=== PATIENT | male | born 1960 | race African-American/Black ===

== ENCOUNTER 2020-12-15 19:00 | Inpatient (IN) ==
[2020-12-15] MEDS ORDERED: SODIUM CHLORIDE 0.9% 1,000 ML IV STA (22:32)
[2020-12-16] MEDS ORDERED: AZITHROMYCIN INJ 500 MG in SODIUM CHLORIDE 0.9% 250 ML IV ONE (01:19)
[2020-12-16] MEDS ORDERED: MELATONIN 3 MG TABLET PO PRN (01:19)
[2020-12-16] MEDS ORDERED: GLUCAGON 1 MG VIAL IM PRN (01:31)
[2020-12-16] MEDS ORDERED: DEXTROSE 50% 25 GM/50 ML VIAL IV PRN (01:31)
[2020-12-16] MEDS ORDERED: ACETAMINOPHEN 325 MG TABLET PO PRN (01:31)
[2020-12-16] MEDS ORDERED: ONDANSETRON 4 MG/2 ML VIAL IV PRN (01:31)
[2020-12-16] MEDS ORDERED: DILTIAZEM 50 MG/10 ML VIAL IV STA ×2 (02:17→05:39)
[2020-12-16] MEDS ORDERED: FUROSEMIDE 40 MG/4 ML VIAL IV ONE (02:17)
[2020-12-16] MEDS ORDERED: DILTIAZEM 25 MG/5 ML VIAL IV ONE (02:20)
[2020-12-16] MEDS ORDERED: METOPROLOL TARTRATE 5 MG/5 ML VIAL IV ONE (02:49)
[2020-12-16] MEDS ORDERED: DILTIAZEM 100 MG VIAL.ADD IV ONE (03:06)
[2020-12-16] MEDS: DILTIAZEM INJ 100 MG in SODIUM CHLORIDE 0.9% 100 ML IV SCH ×3 (03:10→10:01)
[2020-12-16 03:12] LABS: ABG Base Excess -19.6 MMOL/L (-2.5-2.5); ABG HCO3 10.4 MMOL/L (20-26); ABG Oxygen Saturation 83.7 % (95-100); ABG PO2 62.6 MM HG (80-95); ABG TCO2 6.6 MMOL/L (23-27)
[2020-12-16 03:14] LABS: ABG PCO2 18.6 MM HG (35-48); ABG PH 7.206 (7.35-7.45)
[2020-12-16] MEDS ORDERED: SODIUM BICARBONATE 50 MEQ/50 ML SYRINGE IV ONE (03:18)
[2020-12-16] MEDS ORDERED: ETOMIDATE 20 MG/10 ML VIAL IV ONE ×2 (03:23→05:24)
[2020-12-16] MEDS ORDERED: VECURONIUM 10 MG VIAL IV ONE (03:24)
[2020-12-16] MEDS ORDERED: propofoL 200 MG/20 ML VIAL IV ONE (04:04)
[2020-12-16 04:35] LABS: Basophils % 0.1 % (0.0-0.8); Hematocrit 43.4 VOL% (42.0-52.0); Hemoglobin 13.9 GM/DL (14.0-18.0); Immature Granulocytes % 0.6 %; Immature Granulocytes Absolute 0.07 #; Lymphocytes # 1.1 10*3/uL (1.4-4.0); Lymphocytes % 8.4 % (21.2-54.2); Mean Corpuscular Volume 96.4 FL (87-102); Mean Platelet Volume 10.9 FL (9.6-12.0); Monocytes % 3.1 % (1.7-12.7); Neutrophils % 87.8 % (38.7-73.9); Platelet Count 138 T/CUMM (130-400); Red Cell Distribution Width 15.1 % (9.3-17.3); White Blood Count 12.7 T/CUMM (4-12)
[2020-12-16] MEDS: MIDAZOLAM 100 MG in SODIUM CHLORIDE 0.9% 80 ML IV PRN ×2 (04:45→12:30)
[2020-12-16 04:50] LABS: INR 1.1; PT Patient Result 12.4 SECS (10.5-12.0)
[2020-12-16 04:52] LABS: Albumin 2.2 G/DL (3.4-5.0); Bilirubin,Total 0.9 MG/DL (0.20-1.00); Calcium 8.5 MG/DL (8.5-10.1); Osmolality,Calculated 299.4 MOS/KG (273-304); Potassium 5.1 MMOL/L (3.5-5.1)
[2020-12-16 04:53] LABS: Lymphocytes 4 % (20-55); Platelet Estimate Normal; Segmented Neutrophils 94 % (50-85); Total Cells Counted 100
[2020-12-16] MEDS ORDERED: MAGNESIUM SULF RIDER 2 GM/50 ML PREMIX IV PRN (05:23)
[2020-12-16] MEDS ORDERED: POTASSIUM CHLORIDE 20 MEQ TABLET PO PRN (05:23)
[2020-12-16] MEDS ORDERED: MAGNESIUM SULF RIDER 4 GM/100 ML PREMIX IV PRN (05:23)
[2020-12-16] MEDS ORDERED: FUROSEMIDE 40 MG/4 ML VIAL IV STA (05:37)
[2020-12-16] MEDS ORDERED: METOPROLOL TARTRATE 5 MG/5 ML VIAL IV STA (05:37)
[2020-12-16] MEDS ORDERED: SODIUM BICARBONATE 50 MEQ/50 ML VIAL IV STA (05:38)
[2020-12-16] MEDS ORDERED: ETOMIDATE 20 MG/10 ML VIAL IV STA ×2 (05:39→05:40)
[2020-12-16] MEDS ORDERED: VECURONIUM 10 MG VIAL IV STA (05:39)
[2020-12-16] MEDS ORDERED: propofoL 200 MG/20 ML VIAL IV STA (05:40)
[2020-12-16 05:51] LABS: ABG Base Excess -10.6 MMOL/L (-2.5-2.5); ABG HCO3 16.2 MMOL/L (20-26); ABG PCO2 38.1 MM HG (35-48); ABG PH 7.243 (7.35-7.45); ABG TCO2 14.5 MMOL/L (23-27)
[2020-12-16] MEDS ORDERED: ACETAMINOPHEN 650 MG SUPP RECTAL STA (06:08)
[2020-12-16] MEDS ORDERED: INSULIN REGULAR 100 UNIT/ML SUBCUT SCH (07:30)
[2020-12-16] MEDS: DEXAMETHASONE 4 MG/1 ML VIAL IV SCH (08:53)
[2020-12-16] MEDS: carvediloL 6.25 MG TABLET PO SCH ×2 (08:53→20:39)
[2020-12-16] MEDS: FAMOTIDINE 20 MG/2 ML VIAL IV SCH ×2 (08:53→19:40)
[2020-12-16] MEDS: ZINC GLUCONATE 50 MG TABLET PO SCH (08:54)
[2020-12-16] MEDS: RIVAROXABAN 15 MG TABLET PO SCH (08:54)
[2020-12-16] MEDS: GABAPENTIN 400 MG CAPSULE PO SCH ×3 (08:54→20:39)
[2020-12-16] MEDS: FERROUS SULFATE 325 MG TABLET PO SCH (08:54)
[2020-12-16] MEDS: OMEGA 3 ACID ETHYL ESTERS 1 GM CAPSULE PO SCH (08:54)
[2020-12-16] MEDS: allopurinoL 100 MG TABLET PO SCH (08:54)
[2020-12-16] MEDS: CHOLECALCIFEROL 5,000 UNIT TABLET PO SCH ×2 (08:54→20:39)
[2020-12-16] MEDS: CLOPIDOGREL 75 MG TABLET PO SCH (08:54)
[2020-12-16] MEDS: IVERMECTIN 3 MG TABLET PO SCH (08:54)
[2020-12-16] MEDS: PANTOPRAZOLE 40 MG TABLET PO SCH (08:54)
[2020-12-16] MEDS: CETIRIZINE 10 MG TABLET PO SCH (08:54)
[2020-12-16] MEDS: ASCORBIC ACID 500 MG TABLET PO SCH ×2 (08:54→20:39)
[2020-12-16] MEDS: ATORVASTATIN 80 MG TABLET PO SCH (08:54)
[2020-12-16] MEDS ORDERED: CETIRIZINE 10 MG TABLET PO SCH (09:00)
[2020-12-16] MEDS ORDERED: CHOLECALCIFEROL 1,000 UNIT TABLET PO SCH (09:00)
[2020-12-16] MEDS ORDERED: ZINC GLUCONATE 50 MG TABLET PO SCH (09:00)
[2020-12-16] MEDS ORDERED: amLODIPine 10 MG TABLET PO SCH (09:00)
[2020-12-16] MEDS ORDERED: carvediloL 12.5 MG TABLET PO SCH (09:00)
[2020-12-16] MEDS ORDERED: hydrALAZINE 10 MG TABLET PO SCH (09:00)
[2020-12-16] MEDS ORDERED: SODIUM CHLORIDE 0.9% 1,000 ML IV ONE ×2 (09:52→13:55)
[2020-12-16] MEDS: fentaNYL INJ 1,250 MCG in SODIUM CHLORIDE 0.9% 225 ML IV PRN (10:15)
[2020-12-16] MEDS: cefTRIAXone 1,000 MG in SODIUM CHLORIDE 0.9% 100 ML IV SCH (12:06)
[2020-12-16] MEDS: INSULIN GLARGINE 100 UNIT/ML SUBCUT SCH (12:52)
[2020-12-16] MEDS: INSULIN REGULAR 100 UNIT/ML SUBCUT SCH ×2 (12:53→18:05)
[2020-12-16] MEDS: ALBUTEROL 2.5 MG/3 ML NEB RESP TX SCH ×2 (13:27→19:36)
[2020-12-16] MEDS: SODIUM CHLORIDE 23.4% CONC INJ 38.5 MEQ, SODIUM BICARB INJ 100 MEQ in STERILE WATER INJ... IV SCH ×2 (15:00→21:59)
[2020-12-16] MEDS: MELATONIN 3 MG TABLET PO SCH (20:39)
[2020-12-16] MEDS: PHENYLEPHRINE DRIP 40 MG/250 ML PREMIX IV PRN (21:00)
[2020-12-17] MEDS: INSULIN REGULAR 100 UNIT/ML SUBCUT SCH ×4 (00:22→17:59)
[2020-12-17] MEDS: ALBUTEROL 2.5 MG/3 ML NEB RESP TX SCH ×2 (01:42→07:41)
[2020-12-17] MEDS: SODIUM CHLORIDE 23.4% CONC INJ 38.5 MEQ, SODIUM BICARB INJ 100 MEQ in STERILE WATER INJ... IV SCH ×3 (02:51→19:30)
[2020-12-17 04:05] LABS: ABG Base Excess -6.6 MMOL/L (-2.5-2.5); ABG HCO3 19.1 MMOL/L (20-26); ABG Oxygen Saturation 99.7 % (95-100); ABG PCO2 35.4 MM HG (35-48); ABG TCO2 16.3 MMOL/L (23-27)
[2020-12-17 05:48] LABS: Basophils % 0.1 % (0.0-0.8); Hemoglobin 13.1 GM/DL (14.0-18.0); Immature Granulocytes % 0.9 %; Lymphocytes # 0.6 10*3/uL (1.4-4.0); Lymphocytes % 5.9 % (21.2-54.2); Mean Corpuscular Volume 97.2 FL (87-102); Mean Platelet Volume 11.3 FL (9.6-12.0); Monocytes % 3.9 % (1.7-12.7); Neutrophils % 89.2 % (38.7-73.9); Platelet Count 147 T/CUMM (130-400); Red Blood Count 4.22 MC/CUMM (3.8-5.5); Red Cell Distribution Width 15.5 % (9.3-17.3); White Blood Count 10.9 T/CUMM (4-12)
[2020-12-17 06:11] LABS: Band Neutrophils 1 % (0-10); Lymphocytes 8 % (20-55); Platelet Estimate Adequate; Segmented Neutrophils 88 % (50-85); Total Cells Counted 100
[2020-12-17 06:16] LABS: Calcium 8.9 MG/DL (8.5-10.1); Osmolality,Calculated 303.3 MOS/KG (273-304); Potassium 4.2 MMOL/L (3.5-5.1)
[2020-12-17] MEDS: DILTIAZEM INJ 100 MG in SODIUM CHLORIDE 0.9% 100 ML IV SCH (06:21)
[2020-12-17] MEDS: FAMOTIDINE 20 MG/2 ML VIAL IV SCH ×2 (06:21→18:00)
[2020-12-17] MEDS: PHENYLEPHRINE DRIP 40 MG/250 ML PREMIX IV PRN ×2 (06:22→20:26)
[2020-12-17] MEDS: MIDAZOLAM 100 MG in SODIUM CHLORIDE 0.9% 80 ML IV PRN (06:22)
[2020-12-17] MEDS: fentaNYL INJ 1,250 MCG in SODIUM CHLORIDE 0.9% 225 ML IV PRN (06:22)
[2020-12-17 06:40] LABS: Ferritin 4703.9 ng/mL (26-388)
[2020-12-17 06:55] LABS: Hepatitis B Core IgM Quant 0.08 Index; Hepatitis B Surface Ag Quant < 0.10 Index; Hepatitis B Surface Ag Result Non-Reactive (NonReactive); Hepatitis C Virus Ab Quant 0.09 Index; Hepatitis C Virus Ab Result Non-Reactive (NonReactive)
[2020-12-17] MEDS: carvediloL 6.25 MG TABLET PO SCH ×2 (09:45→21:46)
[2020-12-17] MEDS: RIVAROXABAN 15 MG TABLET PO SCH (09:45)
[2020-12-17] MEDS: GABAPENTIN 400 MG CAPSULE PO SCH ×3 (09:46→21:30)
[2020-12-17] MEDS: OMEGA 3 ACID ETHYL ESTERS 1 GM CAPSULE PO SCH (09:46)
[2020-12-17] MEDS: CLOPIDOGREL 75 MG TABLET PO SCH (09:46)
[2020-12-17] MEDS: FERROUS SULFATE 325 MG TABLET PO SCH (09:46)
[2020-12-17] MEDS: DEXAMETHASONE 4 MG/1 ML VIAL IV SCH (09:46)
[2020-12-17] MEDS: IVERMECTIN 3 MG TABLET PO SCH (09:46)
[2020-12-17] MEDS: ATORVASTATIN 80 MG TABLET PO SCH (09:46)
[2020-12-17] MEDS: INSULIN GLARGINE 100 UNIT/ML SUBCUT SCH (09:46)
[2020-12-17] MEDS: PANTOPRAZOLE 40 MG TABLET PO SCH (09:46)
[2020-12-17] MEDS: ASCORBIC ACID 500 MG TABLET PO SCH ×2 (09:46→21:30)
[2020-12-17] MEDS: ZINC GLUCONATE 50 MG TABLET PO SCH (09:47)
[2020-12-17] MEDS: cefTRIAXone 1,000 MG in SODIUM CHLORIDE 0.9% 100 ML IV SCH (09:47)
[2020-12-17] MEDS: CHOLECALCIFEROL 5,000 UNIT TABLET PO SCH ×2 (09:47→21:30)
[2020-12-17] MEDS: CETIRIZINE 10 MG TABLET PO SCH (09:47)
[2020-12-17] MEDS: allopurinoL 100 MG TABLET PO SCH (09:47)
[2020-12-17] MEDS: AZITHROMYCIN 250 MG TABLET PO SCH (09:47)
[2020-12-17] MEDS ORDERED: VANCOMYCIN INJ 1,000 MG in SODIUM CHLORIDE 0.9% 250 ML IV SCH (12:00)
[2020-12-17] MEDS: PANTOPRAZOLE 40 MG VIAL IV SCH (12:08)
[2020-12-17] MEDS ORDERED: SODIUM CHLORIDE 0.9% IV ONE (14:00)
[2020-12-17] MEDS ORDERED: VANCOMYCIN IV ONE (14:00)
[2020-12-17] MEDS: ALBUTEROL INHALER 18 GM INH SCH (18:00)
[2020-12-17 18:10] LABS: Basophils % 0.2 % (0.0-0.8); Hematocrit 38.1 VOL% (42.0-52.0); Hemoglobin 12.6 GM/DL (14.0-18.0); Immature Granulocytes % 0.7 %; Immature Granulocytes Absolute 0.08 #; Lymphocytes # 0.5 10*3/uL (1.4-4.0); Lymphocytes % 4.7 % (21.2-54.2); Mean Corpuscular HGB Conc 33.1 GM/DL (32-36); Mean Corpuscular Volume 94.5 FL (87-102); Mean Platelet Volume 11.5 FL (9.6-12.0); Monocytes % 3.3 % (1.7-12.7); Neutrophils % 91.1 % (38.7-73.9); Platelet Count 127 T/CUMM (130-400); Red Blood Count 4.03 MC/CUMM (3.8-5.5); Red Cell Distribution Width 15.6 % (9.3-17.3); White Blood Count 11.3 T/CUMM (4-12)
[2020-12-17 19:21] LABS: Lymphocytes 5 % (20-55); Macrocytosis Slight; Segmented Neutrophils 90 % (50-85); Total Cells Counted 100
[2020-12-17 19:23] LABS: Platelet Estimate Decreased; Spherocytes 1+
[2020-12-17 19:24] LABS: Schistocytes Few
[2020-12-17] MEDS: MELATONIN 3 MG TABLET PO SCH (21:30)
[2020-12-18] MEDS: ALBUTEROL INHALER 18 GM INH SCH ×4 (00:24→18:29)
[2020-12-18] MEDS: INSULIN REGULAR 100 UNIT/ML SUBCUT SCH ×4 (00:35→18:28)
[2020-12-18 03:36] LABS: ABG Base Excess -1.3 MMOL/L (-2.5-2.5); ABG HCO3 23.4 MMOL/L (20-26); ABG Oxygen Saturation 99.7 % (95-100); ABG PCO2 32.1 MM HG (35-48); ABG PH 7.444 (7.35-7.45); ABG TCO2 19.3 MMOL/L (23-27)
[2020-12-18 04:01] LABS: Basophils % 0.1 % (0.0-0.8); Immature Granulocytes % 0.9 %; Immature Granulocytes Absolute 0.11 #; Lymphocytes # 0.4 10*3/uL (1.4-4.0); Lymphocytes % 3.5 % (21.2-54.2); Mean Corpuscular HGB Conc 32.4 GM/DL (32-36); Mean Corpuscular Volume 96.1 FL (87-102); Mean Platelet Volume 11.6 FL (9.6-12.0); Monocytes % 4.4 % (1.7-12.7); Neutrophils % 91.1 % (38.7-73.9); Platelet Count 139 T/CUMM (130-400); Red Blood Count 3.85 MC/CUMM (3.8-5.5); Red Cell Distribution Width 15.5 % (9.3-17.3); White Blood Count 11.7 T/CUMM (4-12)
[2020-12-18 04:19] LABS: Calcium 8.8 MG/DL (8.5-10.1); Osmolality,Calculated 312.8 MOS/KG (273-304)
[2020-12-18 05:24] LABS: Anisocytosis 1+; Band Neutrophils 3 % (0-10); Lymphocytes 5 % (20-55); Macrocytosis 1+; Platelet Estimate Adequate; Segmented Neutrophils 88 % (50-85); Total Cells Counted 100
[2020-12-18] MEDS: DILTIAZEM INJ 100 MG in SODIUM CHLORIDE 0.9% 100 ML IV SCH (06:38)
[2020-12-18] MEDS: SODIUM CHLORIDE 23.4% CONC INJ 38.5 MEQ, SODIUM BICARB INJ 100 MEQ in STERILE WATER INJ... IV SCH ×2 (06:40→18:28)
[2020-12-18] MEDS: fentaNYL INJ 1,250 MCG in SODIUM CHLORIDE 0.9% 225 ML IV PRN (06:44)
[2020-12-18] MEDS ORDERED: INSULIN GLARGINE 100 UNIT/ML SUBCUT SCH (09:00)
[2020-12-18] MEDS: DEXAMETHASONE 4 MG/1 ML VIAL IV SCH (09:01)
[2020-12-18] MEDS: PANTOPRAZOLE 40 MG VIAL IV SCH (09:01)
[2020-12-18] MEDS: CHOLECALCIFEROL 5,000 UNIT TABLET PO SCH ×2 (09:02→20:28)
[2020-12-18] MEDS: ASCORBIC ACID 500 MG TABLET PO SCH ×2 (09:02→20:28)
[2020-12-18] MEDS: CLOPIDOGREL 75 MG TABLET PO SCH (09:02)
[2020-12-18] MEDS: CETIRIZINE 10 MG TABLET PO SCH (09:02)
[2020-12-18] MEDS: AZITHROMYCIN 250 MG TABLET PO SCH (09:02)
[2020-12-18] MEDS: ZINC GLUCONATE 50 MG TABLET PO SCH (09:02)
[2020-12-18] MEDS: FERROUS SULFATE 325 MG TABLET PO SCH (09:02)
[2020-12-18] MEDS: ATORVASTATIN 80 MG TABLET PO SCH (09:02)
[2020-12-18] MEDS: GABAPENTIN 400 MG CAPSULE PO SCH ×3 (09:02→20:29)
[2020-12-18] MEDS: FAMOTIDINE 20 MG/2 ML VIAL IV SCH (09:03)
[2020-12-18] MEDS: allopurinoL 100 MG TABLET PO SCH (09:03)
[2020-12-18] MEDS: RIVAROXABAN 15 MG TABLET PO SCH (09:04)
[2020-12-18] MEDS: OMEGA 3 ACID ETHYL ESTERS 1 GM CAPSULE PO SCH (09:05)
[2020-12-18] MEDS: cefTRIAXone 1,000 MG in SODIUM CHLORIDE 0.9% 100 ML IV SCH (09:05)
[2020-12-18] MEDS: IVERMECTIN 3 MG TABLET PO SCH (09:06)
[2020-12-18] MEDS: carvediloL 6.25 MG TABLET PO SCH ×2 (10:00→20:27)
[2020-12-18] MEDS: VANCOMYCIN INJ 2,000 MG in SODIUM CHLORIDE 0.9% 500 ML IV SCH (14:41)
[2020-12-18] MEDS ORDERED: POLYETHYLENE GLYCOL POWDER 17 GM PACK PO PRN (14:46)
[2020-12-18] MEDS: MELATONIN 3 MG TABLET PO SCH (20:28)
[2020-12-19] MEDS: INSULIN REGULAR 100 UNIT/ML SUBCUT SCH ×4 (00:29→18:43)
[2020-12-19] MEDS: fentaNYL INJ 1,250 MCG in SODIUM CHLORIDE 0.9% 225 ML IV PRN (01:22)
[2020-12-19] MEDS: ALBUTEROL INHALER 18 GM INH SCH ×4 (03:57→20:30)
[2020-12-19 03:58] LABS: Basophils % 0.1 % (0.0-0.8); Hematocrit 36.4 VOL% (42.0-52.0); Hemoglobin 11.5 GM/DL (14.0-18.0); Immature Granulocytes % 1.5 %; Immature Granulocytes Absolute 0.15 #; Lymphocytes # 0.5 10*3/uL (1.4-4.0); Lymphocytes % 4.7 % (21.2-54.2); Mean Corpuscular HGB Conc 31.6 GM/DL (32-36); Mean Corpuscular Volume 97.8 FL (87-102); Mean Platelet Volume 11.5 FL (9.6-12.0); Monocytes % 4.8 % (1.7-12.7); Neutrophils % 88.9 % (38.7-73.9); Platelet Count 116 T/CUMM (130-400); Red Blood Count 3.72 MC/CUMM (3.8-5.5); Red Cell Distribution Width 15.2 % (9.3-17.3); White Blood Count 9.8 T/CUMM (4-12)
[2020-12-19 04:08] LABS: ABG Base Excess 2.2 MMOL/L (-2.5-2.5); ABG HCO3 26.2 MMOL/L (20-26); ABG Oxygen Saturation 91.8 % (95-100); ABG PCO2 39.2 MM HG (35-48); ABG PH 7.437 (7.35-7.45); ABG TCO2 23.4 MMOL/L (23-27); Allen Test Positive; Pt O2 Delivery Device Ventilator
[2020-12-19] MEDS: SODIUM CHLORIDE 23.4% CONC INJ 38.5 MEQ, SODIUM BICARB INJ 100 MEQ in STERILE WATER INJ... IV SCH ×2 (04:26→15:12)
[2020-12-19 04:32] LABS: Albumin 1.8 G/DL (3.4-5.0); Bilirubin,Total 0.7 MG/DL (0.20-1.00); Calcium 8.6 MG/DL (8.5-10.1); Ferritin 2761.8 ng/mL (26-388); Total Protein 6.1 G/DL (6.4-8.2)
[2020-12-19 05:36] LABS: Anisocytosis 1+; Lymphocytes 7 % (20-55); Macrocytosis 1+; Platelet Estimate Adequate; Segmented Neutrophils 90 % (50-85); Total Cells Counted 100
[2020-12-19] MEDS: PANTOPRAZOLE 40 MG VIAL IV SCH (08:07)
[2020-12-19] MEDS: OMEGA 3 ACID ETHYL ESTERS 1 GM CAPSULE PO SCH (08:08)
[2020-12-19] MEDS: ASCORBIC ACID 500 MG TABLET PO SCH (08:08)
[2020-12-19] MEDS: ATORVASTATIN 80 MG TABLET PO SCH (08:08)
[2020-12-19] MEDS: carvediloL 6.25 MG TABLET PO SCH (08:08)
[2020-12-19] MEDS: FERROUS SULFATE 325 MG TABLET PO SCH (08:08)
[2020-12-19] MEDS: DEXAMETHASONE 4 MG/1 ML VIAL IV SCH (08:08)
[2020-12-19] MEDS: CLOPIDOGREL 75 MG TABLET PO SCH (08:08)
[2020-12-19] MEDS: ZINC GLUCONATE 50 MG TABLET PO SCH (08:09)
[2020-12-19] MEDS: CETIRIZINE 10 MG TABLET PO SCH (08:09)
[2020-12-19] MEDS: RIVAROXABAN 15 MG TABLET PO SCH (08:09)
[2020-12-19] MEDS: allopurinoL 100 MG TABLET PO SCH (08:09)
[2020-12-19] MEDS: GABAPENTIN 400 MG CAPSULE PO SCH ×2 (08:09→14:44)
[2020-12-19] MEDS: CHOLECALCIFEROL 5,000 UNIT TABLET PO SCH (08:09)
[2020-12-19] MEDS: AZITHROMYCIN 250 MG TABLET PO SCH (08:09)
[2020-12-19] MEDS: IVERMECTIN 3 MG TABLET PO SCH (08:10)
[2020-12-19] MEDS ORDERED: INSULIN GLARGINE 100 UNIT/ML SUBCUT SCH (09:00)
[2020-12-19] MEDS ORDERED: INSULIN GLARGINE 100 UNIT/ML SUBCUT ONE (10:13)
[2020-12-19] MEDS: VANCOMYCIN INJ 2,000 MG in SODIUM CHLORIDE 0.9% 500 ML IV SCH (14:43)
[2020-12-19] MEDS: hydrALAZINE 20 MG/1 ML VIAL IV PRN (21:51)
[2020-12-20] MEDS: carvediloL 6.25 MG TABLET PO SCH ×3 (00:57→21:56)
[2020-12-20] MEDS: GABAPENTIN 400 MG CAPSULE PO SCH ×4 (00:57→23:24)
[2020-12-20] MEDS: MELATONIN 3 MG TABLET PO SCH ×2 (00:57→21:55)
[2020-12-20] MEDS: CHOLECALCIFEROL 5,000 UNIT TABLET PO SCH ×3 (00:58→21:55)
[2020-12-20] MEDS: ASCORBIC ACID 500 MG TABLET PO SCH ×3 (00:58→21:54)
[2020-12-20] MEDS: SODIUM CHLORIDE 23.4% CONC INJ 38.5 MEQ, SODIUM BICARB INJ 100 MEQ in STERILE WATER INJ... IV SCH ×3 (01:00→23:26)
[2020-12-20] MEDS ORDERED: LABETALOL 20 MG/4 ML SYRINGE IV ONE (01:07)
[2020-12-20] MEDS: ALBUTEROL INHALER 18 GM INH SCH ×2 (01:25→06:30)
[2020-12-20] MEDS: INSULIN REGULAR 100 UNIT/ML SUBCUT SCH ×4 (01:55→22:47)
[2020-12-20] MEDS: cloNIDine 0.3 MG/24 HR PATCH TRANSDERM SCH ×2 (01:55→09:59)
[2020-12-20 04:20] LABS: ABG Base Excess 9.6 MMOL/L (-2.5-2.5); ABG HCO3 32.8 MMOL/L (20-26); ABG Oxygen Saturation 91.1 % (95-100); ABG PCO2 39.1 MM HG (35-48); ABG PH 7.542 (7.35-7.45); ABG PO2 61.8 MM HG (80-95); Allen Test Positive; Pt O2 Delivery Device Venturi Mask
[2020-12-20 05:19] LABS: Hematocrit 37.4 VOL% (42.0-52.0); Hemoglobin 11.7 GM/DL (14.0-18.0); Immature Granulocytes % 1.3 %; Immature Granulocytes Absolute 0.13 #; Lymphocytes # 0.7 10*3/uL (1.4-4.0); Lymphocytes % 6.4 % (21.2-54.2); Mean Corpuscular HGB Conc 31.3 GM/DL (32-36); Mean Corpuscular Volume 98.2 FL (87-102); Mean Platelet Volume 11.2 FL (9.6-12.0); Monocytes % 6.5 % (1.7-12.7); NRBC # 0.02 10*3/uL; Neutrophils % 85.8 % (38.7-73.9); Platelet Count 148 T/CUMM (130-400); Red Blood Count 3.81 MC/CUMM (3.8-5.5); Red Cell Distribution Width 14.7 % (9.3-17.3); White Blood Count 10.4 T/CUMM (4-12)
[2020-12-20] MEDS: hydrALAZINE 20 MG/1 ML VIAL IV PRN (05:50)
[2020-12-20 05:56] LABS: Albumin 1.9 G/DL (3.4-5.0); Bilirubin,Total 0.6 MG/DL (0.20-1.00); Calcium 9.1 MG/DL (8.5-10.1); Osmolality,Calculated 306.7 MOS/KG (273-304); Potassium 3.8 MMOL/L (3.5-5.1); Total Protein 6.3 G/DL (6.4-8.2)
[2020-12-20] MEDS: DEXAMETHASONE 4 MG/1 ML VIAL IV SCH (09:52)
[2020-12-20] MEDS: PANTOPRAZOLE 40 MG VIAL IV SCH (09:52)
[2020-12-20] MEDS: FERROUS SULFATE 325 MG TABLET PO SCH (09:53)
[2020-12-20] MEDS: ATORVASTATIN 80 MG TABLET PO SCH (09:53)
[2020-12-20] MEDS: RIVAROXABAN 15 MG TABLET PO SCH (09:54)
[2020-12-20] MEDS: IVERMECTIN 3 MG TABLET PO SCH (09:54)
[2020-12-20] MEDS: ZINC GLUCONATE 50 MG TABLET PO SCH (09:54)
[2020-12-20] MEDS: CETIRIZINE 10 MG TABLET PO SCH (09:54)
[2020-12-20] MEDS: OMEGA 3 ACID ETHYL ESTERS 1 GM CAPSULE PO SCH (09:55)
[2020-12-20] MEDS: AZITHROMYCIN 250 MG TABLET PO SCH (09:55)
[2020-12-20] MEDS: INSULIN GLARGINE 100 UNIT/ML SUBCUT SCH (09:56)
[2020-12-20] MEDS: allopurinoL 100 MG TABLET PO SCH (09:58)
[2020-12-20] MEDS: CLOPIDOGREL 75 MG TABLET PO SCH (09:59)
[2020-12-20] MEDS: VANCOMYCIN INJ 2,000 MG in SODIUM CHLORIDE 0.9% 500 ML IV SCH (16:03)
[2020-12-21] MEDS: INSULIN REGULAR 100 UNIT/ML SUBCUT SCH ×4 (00:41→18:11)
[2020-12-21] MEDS: ALBUTEROL INHALER 18 GM INH SCH ×4 (00:42→21:38)
[2020-12-21 05:07] LABS: ABG Base Excess 8.5 MMOL/L (-2.5-2.5); ABG HCO3 32.2 MMOL/L (20-26); ABG Oxygen Saturation 94.5 % (95-100); ABG PCO2 39.2 MM HG (35-48); ABG PH 7.521 (7.35-7.45); ABG PO2 72.4 MM HG (80-95); ABG TCO2 26.8 MMOL/L (23-27); Allen Test Positive; Pt O2 Delivery Device Venturi Mask
[2020-12-21 06:07] LABS: Basophils % 0.1 % (0.0-0.8); Eosinophils % 0.3 % (0.00-10.9); Hematocrit 37.5 VOL% (42.0-52.0); Hemoglobin 11.9 GM/DL (14.0-18.0); Immature Granulocytes % 0.9 %; Immature Granulocytes Absolute 0.09 #; Lymphocytes # 1.1 10*3/uL (1.4-4.0); Lymphocytes % 10.2 % (21.2-54.2); Mean Corpuscular HGB Conc 31.7 GM/DL (32-36); Mean Corpuscular Volume 97.2 FL (87-102); Mean Platelet Volume 10.8 FL (9.6-12.0); Monocytes % 5.5 % (1.7-12.7); NRBC # 0.03 10*3/uL; Platelet Count 174 T/CUMM (130-400); Red Blood Count 3.86 MC/CUMM (3.8-5.5); Red Cell Distribution Width 14.6 % (9.3-17.3); White Blood Count 10.5 T/CUMM (4-12)
[2020-12-21 06:42] LABS: Albumin 1.9 G/DL (3.4-5.0); Bilirubin,Total 0.8 MG/DL (0.20-1.00); Osmolality,Calculated 300.7 MOS/KG (273-304); Potassium 3.8 MMOL/L (3.5-5.1); Total Protein 6.2 G/DL (6.4-8.2)
[2020-12-21] MEDS: ATORVASTATIN 80 MG TABLET PO SCH (08:41)
[2020-12-21] MEDS: ZINC GLUCONATE 50 MG TABLET PO SCH (08:41)
[2020-12-21] MEDS: RIVAROXABAN 15 MG TABLET PO SCH (08:41)
[2020-12-21] MEDS: OMEGA 3 ACID ETHYL ESTERS 1 GM CAPSULE PO SCH (08:41)
[2020-12-21] MEDS: DEXAMETHASONE 4 MG/1 ML VIAL IV SCH (08:42)
[2020-12-21] MEDS: CHOLECALCIFEROL 5,000 UNIT TABLET PO SCH ×2 (08:44→21:39)
[2020-12-21] MEDS: CLOPIDOGREL 75 MG TABLET PO SCH (08:44)
[2020-12-21] MEDS: allopurinoL 100 MG TABLET PO SCH (08:44)
[2020-12-21] MEDS: carvediloL 6.25 MG TABLET PO SCH ×2 (08:44→21:39)
[2020-12-21] MEDS: ASCORBIC ACID 500 MG TABLET PO SCH ×2 (08:44→21:39)
[2020-12-21] MEDS: PANTOPRAZOLE 40 MG VIAL IV SCH (08:45)
[2020-12-21] MEDS: CETIRIZINE 10 MG TABLET PO SCH (08:47)
[2020-12-21] MEDS: GABAPENTIN 400 MG CAPSULE PO SCH ×3 (08:47→21:39)
[2020-12-21] MEDS: SODIUM CHLORIDE 23.4% CONC INJ 38.5 MEQ, SODIUM BICARB INJ 100 MEQ in STERILE WATER INJ... IV SCH (10:09)
[2020-12-21] MEDS: FERROUS SULFATE 325 MG TABLET PO SCH (10:11)
[2020-12-21] MEDS: INSULIN GLARGINE 100 UNIT/ML SUBCUT SCH (10:11)
[2020-12-21] MEDS: VANCOMYCIN INJ 2,000 MG in SODIUM CHLORIDE 0.9% 500 ML IV SCH (13:23)
[2020-12-21 13:53] LABS: Calcium 9.1 MG/DL (8.5-10.1); Potassium 4.1 MMOL/L (3.5-5.1)
[2020-12-21] MEDS: cefTRIAXone 1,000 MG in SODIUM CHLORIDE 0.9% 100 ML IV SCH (18:11)
[2020-12-21] MEDS: MELATONIN 3 MG TABLET PO SCH (21:39)
[2020-12-22] MEDS: ALBUTEROL INHALER 18 GM INH SCH ×6 (01:14→19:31)
[2020-12-22] MEDS: INSULIN REGULAR 100 UNIT/ML SUBCUT SCH ×4 (01:14→18:05)
[2020-12-22 03:39] LABS: ABG HCO3 31.6 MMOL/L (20-26); ABG Oxygen Saturation 90.7 % (95-100); ABG PCO2 41.7 MM HG (35-48); ABG PH 7.494 (7.35-7.45); ABG PO2 63.4 MM HG (80-95)
[2020-12-22 06:03] LABS: Basophils % 0.1 % (0.0-0.8); Eosinophils % 0.1 % (0.00-10.9); Hematocrit 38.2 VOL% (42.0-52.0); Hemoglobin 12.1 GM/DL (14.0-18.0); Immature Granulocytes % 1.1 %; Lymphocytes # 0.9 10*3/uL (1.4-4.0); Lymphocytes % 9.4 % (21.2-54.2); Mean Corpuscular HGB Conc 31.7 GM/DL (32-36); Neutrophils % 83.3 % (38.7-73.9); Platelet Count 199 T/CUMM (130-400); Red Blood Count 3.94 MC/CUMM (3.8-5.5); Red Cell Distribution Width 14.4 % (9.3-17.3); White Blood Count 9.4 T/CUMM (4-12)
[2020-12-22] MEDS: PANTOPRAZOLE 40 MG TABLET PO SCH (06:05)
[2020-12-22] MEDS: DEXAMETHASONE 4 MG/1 ML VIAL IV SCH (08:47)
[2020-12-22] MEDS: cefTRIAXone 1,000 MG in SODIUM CHLORIDE 0.9% 100 ML IV SCH (08:47)
[2020-12-22] MEDS: INSULIN GLARGINE 100 UNIT/ML SUBCUT SCH (08:47)
[2020-12-22] MEDS: GABAPENTIN 400 MG CAPSULE PO SCH ×3 (08:48→20:37)
[2020-12-22] MEDS: CLOPIDOGREL 75 MG TABLET PO SCH (08:48)
[2020-12-22] MEDS: FUROSEMIDE 40 MG TABLET PO SCH (08:48)
[2020-12-22] MEDS: FERROUS SULFATE 325 MG TABLET PO SCH (08:48)
[2020-12-22] MEDS: ZINC GLUCONATE 50 MG TABLET PO SCH (08:48)
[2020-12-22] MEDS: allopurinoL 100 MG TABLET PO SCH (08:48)
[2020-12-22] MEDS: ATORVASTATIN 80 MG TABLET PO SCH (08:48)
[2020-12-22] MEDS: ASCORBIC ACID 500 MG TABLET PO SCH ×2 (08:48→20:36)
[2020-12-22] MEDS: OMEGA 3 ACID ETHYL ESTERS 1 GM CAPSULE PO SCH (08:48)
[2020-12-22] MEDS: carvediloL 6.25 MG TABLET PO SCH ×2 (08:48→20:36)
[2020-12-22] MEDS: CHOLECALCIFEROL 5,000 UNIT TABLET PO SCH ×2 (08:49→20:37)
[2020-12-22] MEDS: RIVAROXABAN 15 MG TABLET PO SCH (08:49)
[2020-12-22] MEDS: CETIRIZINE 10 MG TABLET PO SCH (08:49)
[2020-12-22] MEDS: MELATONIN 3 MG TABLET PO SCH (20:37)
[2020-12-23] MEDS: INSULIN REGULAR 100 UNIT/ML SUBCUT SCH ×4 (02:13→18:00)
[2020-12-23] MEDS: ALBUTEROL INHALER 18 GM INH SCH ×4 (02:14→20:30)
[2020-12-23 05:48] LABS: Basophils % 0.1 % (0.0-0.8); Eosinophils # 0.1 10*3/uL (0.0-0.87); Eosinophils % 0.5 % (0.00-10.9); Hematocrit 36.5 VOL% (42.0-52.0); Hemoglobin 11.7 GM/DL (14.0-18.0); Immature Granulocytes % 1.5 %; Immature Granulocytes Absolute 0.15 #; Lymphocytes # 1.2 10*3/uL (1.4-4.0); Lymphocytes % 12.4 % (21.2-54.2); Mean Corpuscular HGB Conc 32.1 GM/DL (32-36); Mean Corpuscular Volume 96.8 FL (87-102); Mean Platelet Volume 10.8 FL (9.6-12.0); Monocytes % 5.4 % (1.7-12.7); Neutrophils % 80.1 % (38.7-73.9); Platelet Count 215 T/CUMM (130-400); Red Blood Count 3.77 MC/CUMM (3.8-5.5); Red Cell Distribution Width 14.6 % (9.3-17.3); White Blood Count 9.7 T/CUMM (4-12)
[2020-12-23 07:04] LABS: Calcium 9.2 MG/DL (8.5-10.1); Osmolality,Calculated 300.7 MOS/KG (273-304); Potassium 3.8 MMOL/L (3.5-5.1)
[2020-12-23] MEDS: INSULIN GLARGINE 100 UNIT/ML SUBCUT SCH (11:54)
[2020-12-23] MEDS: PANTOPRAZOLE 40 MG TABLET PO SCH (11:55)
[2020-12-23] MEDS: RIVAROXABAN 15 MG TABLET PO SCH (11:55)
[2020-12-23] MEDS: carvediloL 6.25 MG TABLET PO SCH ×2 (11:55→20:47)
[2020-12-23] MEDS: OMEGA 3 ACID ETHYL ESTERS 1 GM CAPSULE PO SCH (11:56)
[2020-12-23] MEDS: FERROUS SULFATE 325 MG TABLET PO SCH (11:56)
[2020-12-23] MEDS: DEXAMETHASONE 4 MG/1 ML VIAL IV SCH (11:56)
[2020-12-23] MEDS: cefTRIAXone 1,000 MG in SODIUM CHLORIDE 0.9% 100 ML IV SCH (11:56)
[2020-12-23] MEDS: GABAPENTIN 400 MG CAPSULE PO SCH ×3 (11:56→20:47)
[2020-12-23] MEDS: CLOPIDOGREL 75 MG TABLET PO SCH (11:56)
[2020-12-23] MEDS: ATORVASTATIN 80 MG TABLET PO SCH (11:56)
[2020-12-23] MEDS: FUROSEMIDE 40 MG TABLET PO SCH (11:56)
[2020-12-23] MEDS: ASCORBIC ACID 500 MG TABLET PO SCH ×2 (11:57→20:47)
[2020-12-23] MEDS: CETIRIZINE 10 MG TABLET PO SCH (11:58)
[2020-12-23] MEDS: ZINC GLUCONATE 50 MG TABLET PO SCH (11:58)
[2020-12-23] MEDS: CHOLECALCIFEROL 5,000 UNIT TABLET PO SCH ×2 (11:58→20:47)
[2020-12-23] MEDS: allopurinoL 100 MG TABLET PO SCH (11:58)
[2020-12-23] MEDS: MELATONIN 3 MG TABLET PO SCH (20:47)
[2020-12-24] MEDS: ALBUTEROL INHALER 18 GM INH SCH ×4 (00:33→20:11)
[2020-12-24] MEDS: INSULIN REGULAR 100 UNIT/ML SUBCUT SCH ×4 (00:42→18:00)
[2020-12-24] MEDS: PANTOPRAZOLE 40 MG TABLET PO SCH (07:00)
[2020-12-24 07:11] LABS: Potassium 3.9 MMOL/L (3.5-5.1)
[2020-12-24] MEDS: cefTRIAXone 1,000 MG in SODIUM CHLORIDE 0.9% 100 ML IV SCH (08:27)
[2020-12-24] MEDS: CHOLECALCIFEROL 5,000 UNIT TABLET PO SCH ×2 (08:28→20:32)
[2020-12-24] MEDS: ASCORBIC ACID 500 MG TABLET PO SCH ×2 (08:28→20:32)
[2020-12-24] MEDS: FERROUS SULFATE 325 MG TABLET PO SCH (08:28)
[2020-12-24] MEDS: ZINC GLUCONATE 50 MG TABLET PO SCH (08:28)
[2020-12-24] MEDS: CLOPIDOGREL 75 MG TABLET PO SCH (08:28)
[2020-12-24] MEDS: FUROSEMIDE 40 MG TABLET PO SCH (08:28)
[2020-12-24] MEDS: OMEGA 3 ACID ETHYL ESTERS 1 GM CAPSULE PO SCH (08:29)
[2020-12-24] MEDS: DEXAMETHASONE 4 MG/1 ML VIAL IV SCH (08:29)
[2020-12-24] MEDS: GABAPENTIN 400 MG CAPSULE PO SCH ×3 (08:29→20:31)
[2020-12-24] MEDS: ATORVASTATIN 80 MG TABLET PO SCH (08:29)
[2020-12-24] MEDS: carvediloL 6.25 MG TABLET PO SCH ×2 (08:29→20:32)
[2020-12-24] MEDS: RIVAROXABAN 15 MG TABLET PO SCH (08:29)
[2020-12-24] MEDS: allopurinoL 100 MG TABLET PO SCH (08:30)
[2020-12-24] MEDS: CETIRIZINE 10 MG TABLET PO SCH (08:30)
[2020-12-24] MEDS: INSULIN GLARGINE 100 UNIT/ML SUBCUT SCH (09:04)
[2020-12-24] MEDS: MELATONIN 3 MG TABLET PO SCH (20:32)
[2020-12-25] MEDS: INSULIN REGULAR 100 UNIT/ML SUBCUT SCH ×4 (00:16→17:02)
[2020-12-25] MEDS: ALBUTEROL INHALER 18 GM INH SCH ×3 (02:42→20:48)
[2020-12-25] MEDS: hydrALAZINE 20 MG/1 ML VIAL IV PRN (04:15)
[2020-12-25 05:40] LABS: Calcium 9.1 MG/DL (8.5-10.1); Osmolality,Calculated 299.1 MOS/KG (273-304)
[2020-12-25] MEDS: PANTOPRAZOLE 40 MG TABLET PO SCH (05:44)
[2020-12-25] MEDS: FERROUS SULFATE 325 MG TABLET PO SCH (08:35)
[2020-12-25] MEDS: RIVAROXABAN 15 MG TABLET PO SCH (08:35)
[2020-12-25] MEDS: DEXAMETHASONE 4 MG/1 ML VIAL IV SCH (08:35)
[2020-12-25] MEDS: carvediloL 6.25 MG TABLET PO SCH ×2 (08:35→20:48)
[2020-12-25] MEDS: ATORVASTATIN 80 MG TABLET PO SCH (08:36)
[2020-12-25] MEDS: GABAPENTIN 400 MG CAPSULE PO SCH ×3 (08:36→20:47)
[2020-12-25] MEDS: OMEGA 3 ACID ETHYL ESTERS 1 GM CAPSULE PO SCH (08:36)
[2020-12-25] MEDS: FUROSEMIDE 40 MG TABLET PO SCH (08:36)
[2020-12-25] MEDS: CHOLECALCIFEROL 5,000 UNIT TABLET PO SCH ×2 (08:36→20:47)
[2020-12-25] MEDS: INSULIN GLARGINE 100 UNIT/ML SUBCUT SCH (08:36)
[2020-12-25] MEDS: cefTRIAXone 1,000 MG in SODIUM CHLORIDE 0.9% 100 ML IV SCH (08:36)
[2020-12-25] MEDS: CLOPIDOGREL 75 MG TABLET PO SCH (08:36)
[2020-12-25] MEDS: ASCORBIC ACID 500 MG TABLET PO SCH ×2 (08:36→20:47)
[2020-12-25] MEDS: allopurinoL 100 MG TABLET PO SCH (08:37)
[2020-12-25] MEDS: CETIRIZINE 10 MG TABLET PO SCH (08:37)
[2020-12-25] MEDS: ZINC GLUCONATE 50 MG TABLET PO SCH (08:37)
[2020-12-25] MEDS: MELATONIN 3 MG TABLET PO SCH (20:47)
[2020-12-26] MEDS: ALBUTEROL INHALER 18 GM INH SCH (02:03)
[2020-12-26] MEDS: INSULIN REGULAR 100 UNIT/ML SUBCUT SCH ×3 (02:03→12:17)
[2020-12-26] MEDS: PANTOPRAZOLE 40 MG TABLET PO SCH (05:51)
[2020-12-26 06:19] LABS: Basophils % 0.1 % (0.0-0.8); Eosinophils % 0.1 % (0.00-10.9); Hematocrit 35.3 VOL% (42.0-52.0); Hemoglobin 11.3 GM/DL (14.0-18.0); Immature Granulocytes % 1.3 %; Immature Granulocytes Absolute 0.19 #; Lymphocytes # 1.5 10*3/uL (1.4-4.0); Lymphocytes % 9.9 % (21.2-54.2); Mean Corpuscular Volume 96.7 FL (87-102); Mean Platelet Volume 10.2 FL (9.6-12.0); Monocytes % 7.2 % (1.7-12.7); Neutrophils % 81.4 % (38.7-73.9); Platelet Count 244 T/CUMM (130-400); Red Blood Count 3.65 MC/CUMM (3.8-5.5); Red Cell Distribution Width 14.6 % (9.3-17.3); White Blood Count 15.1 T/CUMM (4-12)
[2020-12-26 06:52] LABS: Calcium 8.8 MG/DL (8.5-10.1); Osmolality,Calculated 296.6 MOS/KG (273-304); Potassium 3.8 MMOL/L (3.5-5.1)
[2020-12-26] MEDS: FUROSEMIDE 40 MG TABLET PO SCH (09:04)
[2020-12-26] MEDS: INSULIN GLARGINE 100 UNIT/ML SUBCUT SCH (09:04)
[2020-12-26] MEDS: RIVAROXABAN 15 MG TABLET PO SCH (09:04)
[2020-12-26] MEDS: ATORVASTATIN 80 MG TABLET PO SCH (09:04)
[2020-12-26] MEDS: FERROUS SULFATE 325 MG TABLET PO SCH (09:04)
[2020-12-26] MEDS: carvediloL 6.25 MG TABLET PO SCH (09:04)
[2020-12-26] MEDS: CHOLECALCIFEROL 5,000 UNIT TABLET PO SCH (09:05)
[2020-12-26] MEDS: allopurinoL 100 MG TABLET PO SCH (09:05)
[2020-12-26] MEDS: GABAPENTIN 400 MG CAPSULE PO SCH ×2 (09:05→15:51)
[2020-12-26] MEDS: ASCORBIC ACID 500 MG TABLET PO SCH (09:05)
[2020-12-26] MEDS: ZINC GLUCONATE 50 MG TABLET PO SCH (09:05)
[2020-12-26] MEDS: OMEGA 3 ACID ETHYL ESTERS 1 GM CAPSULE PO SCH (09:05)
[2020-12-26] MEDS: CLOPIDOGREL 75 MG TABLET PO SCH (09:05)
[2020-12-26] MEDS: CETIRIZINE 10 MG TABLET PO SCH (09:05)
[2020-12-26] MEDS: cefTRIAXone 1,000 MG in SODIUM CHLORIDE 0.9% 100 ML IV SCH (09:05)
[2020-12-26 13:19] VITALS: BP 143/91
== END 2020-12-26 05:30 | disposition home or self-care (01) | DRG 720 ==
LOC: N.EDINP 19:00 → N.ED 19:00 → OBSVTOIN 21:52 → SUATTDRO 21:52 → N.ICU 12-18 16:38 → N.2E 12-20 14:04
PROVIDERS: ADMIT Internal Medicine; ATTEND Internal Medicine